=== PATIENT | male | born 1970 | race Two or more races ===

== ENCOUNTER 2017-08-25 03:37 | Emergency (ER) | payer MEDICARE, OTHER ==
[~2017-08-25] VITALS: Ht 177.8 cm; Wt 175.5 kg
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
--- NOTE | 2017-08-25 03:50 | NUR ---
[employer] AT BEDSIDE FOR POLICE REPORT.
--- NOTE | 2017-08-25 05:32 | NUR ---
PT TO CT.
--- NOTE | 2017-08-25 05:42 | NUR ---
PT RETURNED FROM CT.
--- NOTE | 2017-08-25 07:13 | NUR ---
REPORT GIVEN TO JACK KULKARNI FOR JANE.
--- NOTE | 2017-08-25 07:27 | NUR ---
PT. VERBALIZED UNDERSTANDING OF AFTERCARE INSTRUCTIONS.Patient discharged to home in stable condition. Written and verbal after care instructions given. Patient verbalizes understanding of instruction and plan to follow up with primary care doctor or come back to ER for concerns. Pt provided with prescription and advised to possible adverse effects.
[2017-08-25 07:31] VITALS: BP 135/77
== END 2017-08-25 07:32 | disposition home or self-care (01) ==
LOC: ER 03:38
DX: S13.9XXA Sprain of joints and ligaments of unspecified parts of neck, initial encounter (principal); R51 Headache; I13.0 Hypertensive heart and chronic kidney disease with heart failure and stage 1 through stage 4 chronic kidney disease, or unspecified chronic kidney disease; N18.9 Chronic kidney disease, unspecified; E11.22 Type 2 diabetes mellitus with diabetic chronic kidney disease; I50.9 Heart failure, unspecified; Z99.2 Dependence on renal dialysis; V49.49XA Driver injured in collision with other motor vehicles in traffic accident, initial encounter; Y93.89 Activity, other specified; Y92.89 Other specified places as the place of occurrence of the external cause; Y99.8 Other external cause status
CPT/HCPCS: 70450-TC; A4606; Z7610